=== PATIENT | female | born 1960 | race Caucasian/White ===

== ENCOUNTER → 2019-01-02 | Outpatient (CLI) | payer OTHER ==
[~2019-01-02] MED LIST: GASTROGRAFIN SOLUTION 30ML (Q9963) As Ordered ONE; READI-CAT 2 As Ordered ONE
--- NOTE | 2019-01-02 17:46 | REP ---
CT abdomen pelvis with oral but without IV contrast: History: Left lower quadrant pain. Question diverticulitis. Comparison study [facility] August 21, 2011. Findings: Preliminary digital surveyor helper rod radiograph shows clips in the right upper quadrant post cholecystectomy. The lung bases are clear. The liver and the spleen are normal in size homogeneous in texture. No adrenal lesion is seen. No pancreatic abnormality is observed. The kidneys are morphologically intact. There is an extrarenal pelvis configuration to the right kidney which is unchanged from the 2012 prior study. No nephrolithiasis is seen. Urinary bladder is unremarkable. The uterus is somewhat retroverted but unremarkable. No ovarian mass or cyst is seen. No free fluid is noted. Normal appendix is seen in the right lower quadrant. There is mild diverticulosis of the sigmoid colon without CT evidence of diverticulitis. Small and large bowel loops are unremarkable in the abdomen and pelvis. No abdominal wall defect or bony destructive lesion is appreciated. Impression: Left colonic diverticulosis without CT evidence of diverticulitis. Post cholecystectomy. Normal appendix seen. No acute abdominal or pelvic abnormality. Electronically Signed by Ck Beck MD 01/03/2019 07:49 A
== END ==
LOC: M RAD 14:48
PROVIDERS: ATTEND Family Medicine
DX: K57.90 Diverticulosis of intestine, part unspecified, without perforation or abscess without bleeding (principal)
CPT/HCPCS: 74176; Q9963

== ENCOUNTER → 2020-02-14 | Outpatient (CLI) | payer SELFPAY | LOC: M LABSMTC 10:10 | PROVIDERS: ATTEND Pediatrics | DX: Z20.828 Contact with and (suspected) exposure to other viral communicable diseases (principal) ==

== ENCOUNTER → 2024-09-18 | Outpatient (REF) | payer OTHER, MEDICARE | LOC: M LAB REF 16:46 | PROVIDERS: ATTEND Nurse Practitioner Adult Health | DX: N39.0 Urinary tract infection, site not specified (principal) ==